=== PATIENT | male | born 1980 | race American Indian/Alaskan Native ===

== ENCOUNTER 2020-12-28 12:56 | Emergency (ER) | payer SELFPAY ==
--- NOTE | 2020-12-28 13:28 | Emergency Department Report ---
ED Psych HPI - General Chief Complaint: Psych Stated Complaint: PSYCH Time Seen by Provider: 12/28/20 13:08 Source: patient Mode of arrival: Ambulatory - History of Present Illness Initial Comments: Patient is 40 years old male with history of schizoaffective disorder. Patient presented to the ER stating that he is hearing voices asking him to kill himself. Patient stated that he is really bothered with this voices. Patient stated he does not have a plan. He denied any visual hallucination or homicidal ideation. MD Complaint: suicidal ideation -: days(s) Associated Psychiatric Symptoms: suicidal ideation, racing thoughts, auditory hallucinations Associated Symptoms: denies other symptoms If Self Harm: admits thoughts of - Related Data Allergies Allergy/AdvReac Type Severity Reaction Status Date / Time No Known Allergies Allergy Unverified 12/28/20 12:58 ED Review of Systems ROS: Stated complaint: PSYCH Other details as noted in HPI Comment: All other systems reviewed and negative Constitutional: denies: chills, fever Respiratory: denies: cough, shortness of breath, SOB with exertion Cardiovascular: denies: chest pain Gastrointestinal: denies: abdominal pain, nausea Musculoskeletal: denies: back pain Neurological: denies: headache, weakness Psychiatric: anxiety, auditory hallucinations, suicidal thoughts. denies: visual hallucinations, homicidal thoughts ED Past Medical Hx - Past Medical History Previous Medical History?: Yes Hx Psychiatric Treatment: Yes (SCHIZO AFFECTIVE DISORDER) - Surgical History Past Surgical History?: Yes Hx Cholecystectomy: Yes ED Physical Exam - General Limitations: No Limitations General appearance: alert, in no apparent distress, anxious - Head Head exam: Present: atraumatic, normocephalic, normal inspection - Eye Eye exam: Present: normal appearance - ENT ENT exam: Present: normal exam, normal orophraynx, mucous membranes moist - Neck Neck exam: Present: normal inspection, full ROM. Absent: tenderness, meningismus - Respiratory Respiratory exam: Present: normal lung sounds bilaterally - Cardiovascular Cardiovascular Exam: Present: regular rate, normal rhythm, normal heart sounds - GI/Abdominal GI/Abdominal exam: Present: soft, normal bowel sounds. Absent: distended, tenderness, guarding, rebound, rigid, organomegaly, mass, bruit, pulsatile mass, hernia - Extremities Exam Extremities exam: Present: normal inspection, full ROM, normal capillary refill. Absent: pedal edema, calf tenderness - Back Exam Back exam: Present: normal inspection, full ROM. Absent: CVA tenderness (R), CVA tenderness (L) - Neurological Exam Neurological exam: Present: alert, oriented X3, CN II-XII intact - Psychiatric Psychiatric exam: Present: normal mood - Skin Skin exam: Present: warm, intact, normal color ED Course Vital Signs 12/28/20 12/28/20 12/29/20 12:59 17:35 05:53 Temperature 98.4 F 99 F Pulse Rate 95 H 86 Respiratory 18 18 Rate Blood Pressure 128/85 Blood Pressure 110/64 [Left] O2 Sat by Pulse 100 99 99 Oximetry 12/29/20 10:49 Temperature 98.5 F Pulse Rate 85 Respiratory 18 Rate Blood Pressure Blood Pressure 113/75 [Left] O2 Sat by Pulse 98 Oximetry ED Medical Decision Making - Lab Data Result diagrams: 12/28/20 13:32 12/28/20 13:32 - Medical Decision Making Patient is 40 years old male with history of schizoaffective disorder. Patient presented to the ER stating that he is hearing voices asking him to kill himself. Patient stated that he is really bothered with this voices. Patient stated he does not have a plan. He denied any visual hallucination or homicidal ideation. Labs reviewed and is unremarkable. Patient is medically cleared to be evaluated by psychiatric team. Critical care attestation.: If time is entered above; I have spent that time in minutes in the direct care of this critically ill patient, excluding procedure time. ED Disposition Clinical Impression: Suicidal ideation Disposition: HOME / SELF CARE / HOMELESS Is pt being admited?: No Condition: Stable Instructions: Suicidal Feelings: How to Help Yourself Referrals: PRIMARY CARE, [Primary Care Provider] - 3-5 Days
[2020-12-28 13:58] LABS: Basophils # (Auto) 0.1 K/mm3 (0.0-0.1); Basophils % (Auto) 0.7 % (0.0-1.8); Eosinophils # (Auto) 0.3 K/mm3 (0.0-0.4); Eosinophils % (Auto) 4.3 % (0.0-4.3); Hematocrit 39.1 % (35.5-45.6); Hemoglobin 12.4 gm/dl (11.8-15.2); Lymphocytes # (Auto) 1.8 K/mm3 (1.2-5.4); Lymphocytes % (Auto) 24.3 % (13.4-35.0); Mean Corpuscular HGB Conc 32 % (32-34); Mean Corpuscular Volume 98 fl (84-94); Monocytes # (Auto) 0.7 K/mm3 (0.0-0.8); Monocytes % (Auto) 9.5 % (0.0-7.3); Platelet Count 209 K/mm3 (140-440)
[2020-12-28 14:19] LABS: BUN/Creatinine Ratio 13; Blood Urea Nitrogen 9 mg/dL (9-20); Hemolysis Index 8
[2020-12-28 23:05] LABS: Bilirubin,Urine NEG (Negative); Blood,Urine NEG (Negative); Color,Urine Yellow (Yellow); Mucus,Urine 1+ /HPF; Protein,Urine <15 mg/dL mg/dL (Negative); RBC,Urine < 1.0 /HPF (0.0-6.0)
[2020-12-28 23:11] LABS: Amphetamine Screen,Urine PRESUMPTIVE NEGATIVE; Benzodiazepines Screen,Urine PRESUMPTIVE NEGATIVE; Cannabinoid Screen,Urine PRESUMPTIVE NEGATIVE; Cocaine Screen,Urine PRESUMPTIVE POSITIVE; Methadone Screen,Urine PRESUMPTIVE NEGATIVE; Opiate Screen,Urine PRESUMPTIVE NEGATIVE
--- NOTE | 2020-12-29 10:40 | Consultation ---
History of Present Illness - Reason for Consult Consult date: 12/29/20 Reason for consult: hallucinatoins - History of Present Psychiatric Illness The patient was seen today. He is irritable with some of my questions. He says he came to the ER because he got tired of hearing "this voice." He says "It sounds like an ." The patient says he's been hearing voices "as long as he's been able to hear since he's been a kid." I ask him were they worse today, he is irritated and states "I'm just hearing them." He denies the voice telling him anything specific. He also verbalizes "crack cocaine use." I queen's counsel the patient on drug cessation. He becomes upset and tells me "that drugs are not my problem." He then says "that's stupid. Telling somebody not to do drugs is like me telling you not to your hair blonde." The patient says he's homeless because they cut off his disability. He says he has a back injury and that's why he's disabled. He says he takes invega injection and he had it this month. The patient also says he takes Cogentin. When I ask him how much, he replies "It don't matter." He denies SI/HI or ever feeling this was. PAST PSYCHIATRIC HISTORY: Diagnoses: Bipolar, schizophrenia Suicide attempts or Self-harm behavior: Denies Prior psychiatric hospitalizations: Yes Substance Abuse history: crack cocaine Previous psychiatric medications tried: invega, cogentin Outpatient treatment: Denies PAST MEDICAL HISTORY: None reported or document Family Psychiatric History: None reported or documented SOCIAL HISTORY Marital Status: Single Living Arrangements: homeless Employment Status: Disabled Access to guns/weapons: Denies Education: History of Abuse: Denies Legal History: Denies REVIEW OF SYSTEMS Constitutional: Negative for weight loss ENT: Negative for stridor Respiratory: Negative for cough or hemoptysis All other systems reviewed and are negative MENTAL STATUS EXAMINATION General Appearance and Behavior: Age appropriate, good hygiene, wearing appropriate clothes. irritable, cooperative Cooperation: cooperative Psychomotor Behavior: Psychomotor normal Mood: okay Affect and affective range: congruent with stated mood Thought Process: goal directed Thought Content: chronic hallucinations Speech: Normal volume, Regular rate and rhythm, Suicidal Ideation: Denies Homicidal Ideation: Denies Hallucinations: Auditory, chronic Delusions: none elicited Impulse Control: Limited Insight and Judgment: Limited Memory: limited Attention: Attentive Orientation: alert and oriented Assessment and Plan (1) Schizophrenia Treatment Plan d/c 1013 Continue home meds Medical: per primary Sitter: per primary Disposition: Do not recommend acute psychiatric inpatient treatment. The patient understands that if SI/HI or any fear of endangerment are to arise he is to seek immediate assistance The patient to abstain from all illicit drug use He is to follow up in 7 to 14 days upon discharge from hospital The technical rep to further discuss safety plan The technical rep to give the patient all necessary resources Will sign off. Thanks. Case staffed with Dr. Ac Medications and Allergies Allergies Allergy/AdvReac Type Severity Reaction Status Date / Time No Known Allergies Allergy Unverified 12/28/20 12:58 Mental Status Exam - Vital signs Last Vital Signs Temp 99 F 12/28/20 17:35 Pulse 86 12/28/20 17:35 Resp 18 12/28/20 17:35 BP 110/64 12/28/20 17:35 Pulse Ox 99 12/29/20 05:53 Results Result Diagrams: 12/28/20 13:32 12/28/20 13:32 Abnormal lab results 12/28/20 12/28/20 12/28/20 Range/Units 13:32 13:32 13:32 MCV 98 H (84-94) fl Sanders % (Auto) 9.5 H (0.0-7.3) % Creatinine 0.7 L (0.8-1.3) mg/dL Salicylates < 0.3 L (2.8-20.0) mg/dL Acetaminophen (10.0-30.0) ug/mL 12/28/20 Range/Units 13:32 MCV (84-94) fl Sanders % (Auto) (0.0-7.3) % Creatinine (0.8-1.3) mg/dL Salicylates (2.8-20.0) mg/dL Acetaminophen 5.0 L (10.0-30.0) ug/mL All other labs normal.
[2020-12-29 10:50] VITALS: BP 113/75
[2020-12-29] MEDS ORDERED: ZIPRASIDONE MESYLATE 20 MG VIAL IM ONE (10:53)
--- NOTE | 2020-12-29 11:26 | Event Note ---
Date: 12/29/20 Patient has been evaluated by our psychiatric team. Recommended outpatient treatment. Patient today is calm and he denied any suicidal or homicidal ideation. Patient is medically and psychiatrically cleared for discharge.
== END 2020-12-29 12:09 | disposition home or self-care (01) ==
LOC: ED 12:56
DX: R45.851 Suicidal ideations (principal); F20.9 Schizophrenia, unspecified; Z20.822 Contact with and (suspected) exposure to COVID-19; Z90.49 Acquired absence of other specified parts of digestive tract; Z79.899 Other long term (current) drug therapy
CPT/HCPCS: 36415; 80048; 80307; 81001; 85025; 96372; 99284; J3486; U0003; 80320; G0480